=== PATIENT | female | born 1965 | race Caucasian/White ===

== ENCOUNTER 2023-06-28 06:39 | Outpatient (CLI) | payer BC, SELFPAY ==
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
== END 2023-06-28 06:40 | disposition home or self-care (01) ==
PROVIDERS: PCP Family Medicine; Visit Provider Psychiatry & Neurology Neurology
DX: Z09 Encounter for follow-up examination after completed treatment for conditions other than malignant neoplasm (principal); Z87.828 Personal history of other (healed) physical injury and trauma
CPT/HCPCS: 70551

== ENCOUNTER 2023-07-26 06:35 | Outpatient (CLI) | payer BC, SELFPAY ==
--- NOTE | ~2023-07-26 | US_ITS ---
EXAMINATION: US carotid duplex BI DATE: 07/26/2023 07:26 INDICATION: TIA TECHNIQUE: Grayscale, color Doppler, and pulsed Doppler images of the cervical carotid arteries were obtained. The degree of vessel stenosis is placed in one of the following categories: normal, <50%, 5 0-69%, >=70% but less than near-occlusion, near-occlusion, or total occlusion. Note that percent sten osis relative to normal distal artery lumen diameter is indirectly measured from velocity measurement s as described by James, et al. Radiology 2003; 229:340-346. Notes: Normal: Peak systolic velocity <125 centimeters/sec and no plaque <50%. Peak systolic velocity <125 ( EDV <40; ICA/CCA PSV ratio <2.0; used these factors only a tandem lesions or low cardiac output or co ntralateral disease) 50-69 %: PSV 125-230 (EDV 40-100; ratio 2-4) >= 70% but less than near occlusion: PSV greater than 230 (EDV > 100; ratio> 4.0) Near Occlusion: PSV that is variable; markedly narrowed lumen Occlusion: Absent flow on color/spectral Doppler and no lumen on arenas scale. COMPARISON: None. FINDINGS: RIGHT: The right common carotid artery (CCA) peak systolic velocity (PSV) is 105 cm/s. The right internal ca rotid artery (ICA) PSV is 118 cm/s. The right ICA end-diastolic velocity (EDV) is 23 cm/s. The right ICA/CCA PSV ratio is 1.1. The external carotid artery (ECA) PSV is 67 cm/s. There is antegrade flow i n the right vertebral artery. LEFT: The left CCA PSV is 99 cm/s. The left ICA PSV is 99 cm/s. The left ICA EDV is 38 cm/s. The left ICA/C CA PSV ratio is 1.0. The ECA PSV is 70 cm/s. There is antegrade flow in the left vertebral artery. IMPRESSION: 1. Less than 50% stenosis in the right internal carotid artery by sonographic criteria. 2. Less than 50% stenosis in the left internal carotid artery by sonographic criteria. Reviewed, dictated and finalized at location A. IMPRESSION: 1. Less than 50% stenosis in the right internal carotid artery by sonographic magdaleno nielson. 2. Less than 50% stenosis in the left internal carotid artery by sonographic janette gayle.
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
== END 2023-07-26 06:36 | disposition home or self-care (01) ==
PROVIDERS: PCP Family Medicine; Visit Provider Psychiatry & Neurology Neurology
DX: I65.23 Occlusion and stenosis of bilateral carotid arteries (principal); D68.52 Prothrombin gene mutation; I25.10 Atherosclerotic heart disease of native coronary artery without angina pectoris; E66.9 Obesity, unspecified; E11.9 Type 2 diabetes mellitus without complications; E78.2 Mixed hyperlipidemia; I15.2 Hypertension secondary to endocrine disorders; E11.59 Type 2 diabetes mellitus with other circulatory complications; R42 Dizziness and giddiness; G43.809 Other migraine, not intractable, without status migrainosus
CPT/HCPCS: 70544; 93880